=== PATIENT | male | born 1965 | race Caucasian/White ===

== ENCOUNTER → 2020-09-17 14:27 | Outpatient (CLI) | payer BC, SELFPAY ==
--- NOTE | ~2020-09-17 | CT_ITS ---
EXAMINATION: CT abdomen pelvis wo con DATE: 09/17/2020 14:45 INDICATION: Calcium kidney stone TECHNIQUE: Computed tomography (CT) of the abdomen and pelvis was performed without intravenous contr ast. Automated exposure control and iterative reconstruction technique were employed. Exam dose: 107 0.51 mGy-cm total exam DLP. COMPARISON: 11/24/2016 CT abdomen pelvis noncontrast examination FINDINGS: The lung bases are clear of infiltrate or consolidation. Normal heart size. No pericardial or pleural effusion. Diffuse hepatic steatosis. No hepatic space-occupying mass lesion is evident. The gallbladder is pres ent. No gallbladder wall thickening is evident. No pericholecystic fluid or fat stranding. No bile du ct or pancreatic duct dilatation. No pancreatic mass lesion or calcification. Normal splenic size. Approximately 8 cm upper pole exophytic right renal cyst. Several small nonobstructing right renal calculi, the largest approximately 3 mm. There are 2 or 3 pinpoint nonobstructing left renal calculi and one larger lower pole left renal calc ulus measuring up to approximately 7 mm dimension. No ureteral calculus or hydroureteronephrosis is noted on either side. The urinary bladder is unremar kable. There are prostate calcifications. Normal caliber of the abdominal aorta. No intraperitoneal or retroperitoneal or pelvic mass lesion or adenopathy or ascites. Small fat-containing right inguinal hernia. There are numerous diverticula of the sigmoid and descending colon; no CT evidence of diverticulitis. Normal appendix. No bowel obstruction, bowel wall thickening, pneumatosis or intraperitoneal free air . Diffuse idiopathic skeletal hyperostosis of the thoracic spine. Degenerative changes of lumbar spine including degenerative disc disease, most pronounced at L3-4, moderately prominent at L2-3 and L4-5. No suspicious osteolytic or osteoblastic lesions are noted. IMPRESSION: Bilateral nonobstructive nephrolithiasis 8 cm right renal cysts Hepatic steatosis Diverticulosis of the colon; no CT evidence of diverticulitis Reviewed, dictated and finalized at Location A. Reviewed, dictated and finalized at location B. 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
--- NOTE | ~2020-09-17 | XR_ITS ---
EXAMINATION: XR abdomen/kub 1V EXAM DATE: 09/17/2020 14:45 INDICATION: Calcium kidney stone. TECHNIQUE: Frontal projection(s) of the abdomen for interpretation. Correlation was made with CT scan earlier same date. Comparison is made to prior examination from 02/25/2006. FINDINGS: There is expected amount of colonic stool and gas. No small bowel dilation, nonobstructiv e bowel gas pattern. Probable identification of the largest renal stone, located in left inferior ca lyx. Can't confidently identify the smaller stones. There is no organomegaly suspected. The bones are unremarkable. There is no free intraperitoneal air. The lung bases are clear. IMPRESSION: Left nephrolithiasis identified. Reviewed, dictated and finalized at location A. 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
== END ==
PROVIDERS: PCP Internal Medicine; Visit Provider Urology
DX: N20.0 Calculus of kidney (principal); K40.90 Unilateral inguinal hernia, without obstruction or gangrene, not specified as recurrent; M47.816 Spondylosis without myelopathy or radiculopathy, lumbar region; N28.1 Cyst of kidney, acquired; K76.0 Fatty (change of) liver, not elsewhere classified; K57.30 Diverticulosis of large intestine without perforation or abscess without bleeding
CPT/HCPCS: 74018; 74176

== ENCOUNTER 2021-05-15 15:10 | Outpatient (CLI) | payer BC, SELFPAY ==
[2021-05-15 15:45] LABS: CRP 0.9 mg/dL (<1.0)
[2021-05-15 16:26] LABS: Erythrocyte Sedimentation Rate 17 mm/hr (0-20)
[2021-05-23 22:58] LABS: Tissue Transglutaminase IgA Ab <1.0 U/mL (<15.0)
[2021-05-24 19:41] LABS: Tissue Transglutaminase IgG Ab <1.0 U/mL (<15.0)
== END 2021-05-15 15:11 | disposition home or self-care (01) ==
LOC: ANHLAB 15:13
PROVIDERS: PCP Nurse Practitioner Family; Visit Provider Internal Medicine Gastroenterology
DX: R19.5 Other fecal abnormalities (principal)
CPT/HCPCS: 36415; 83516; 85652; 86140

== ENCOUNTER 2023-07-04 12:05 | Emergency (ER) | payer BC, SELFPAY ==
--- NOTE | ~2023-07-04 | XR_ITS ---
EXAMINATION: XR shoulder RT min 2V DATE: 07/04/2023 13:10 INDICATION: Right shoulder pain post fall TECHNIQUE: AP internally and externally rotated, AP oblique externally rotated and transscapular Y vi ews of the right shoulder were obtained. COMPARISON: None FINDINGS: Normal alignment. No fracture.Mild glenohumeral and acromioclavicular osteoarthritis. Visualized por tion of the right lung are clear. Soft tissues are unremarkable. 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 No acute osseous abnormality. Reviewed, dictated and finalized at location A. 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
[2023-07-04 12:20] VITALS: BP 147/81; PULSE 75; RESP 16; TEMP 36.4; O2SAT 100
--- NOTE | 2023-07-04 14:33 | ED.UPPEXIN ---
HPI - Extremity Injury (Upper) General Chief Complaint: Extremity Injury, Upper Stated Complaint: R shoulder injury Time Seen by Provider: 07/04/23 14:16 Source: patient, RN notes reviewed and old records reviewed Mode of arrival: ambulatory Limitations: no limitations History of Present Illness HPI narrative: This is a 58 year old male right hand dominant who presents for evaluation of right shoulder pain. PAtient states yesterday his left leg pants was caught on tram and it caused him to fall onto his right side. He states he fell onto his right shoulder and scrapped up his right knee and right hip. He denies hitting his head or LOC . He has been able to ambulate without difficulty. He reports pain was worse when he woke up this morning. He reports difficulty lifting his right arm. He has not taken any medication or used any treatment. he denies blood thinners. HE denies numbness or tingling. Related Data Home Medications Medication Instructions Recorded Confirmed coenzyme [id number] E 100 mg-100 1 cap PO DAILY 03/25/21 06/03/23 unit capsule Allergies Allergy/AdvReac Type Severity Reaction Status Date / Time No Known Allergies Allergy Verified 07/04/23 12:06 Review of Systems Review of Systems: All systems reviewed & are unremarkable except as noted in HPI and below PMFSH Past Medical History Medical History (Updated 07/04/23 @ 14:38 by Rizwana Polanco MD) Abdominal cramping Anxiety Bloating BMI 38.0-38.9,adult BMI 39.0-39.9,adult BMI 40.0-44.9, adult Colon cancer screening Diabetes mellitus Elevated liver enzymes Encounter to establish care Fatigue Fatty liver CT 06/2018 - fatty liver with mild enlargement; DARREL, copper, ceruloplasmin negative Gout History of kidney stones HTN (hypertension) Hyperlipemia Kidney stones Loose stools Lumbago Nocturia RONDA on CPAP Rash and nonspecific skin eruption Right shoulder pain Screening for diabetes mellitus Skin tag Tinea cruris Surgical History Surgical History Hx of colonoscopy 2013 - internal hemorrhoids and diverticulosis Hx of elbow surgery Hx of lithotripsy Family History Family History Father Family history of malignant neoplasm Mother Family history of malignant neoplasm of breast in first degree relative Hypertension Other Family history of pancreatic cancer Social History Social History Smoking status: Never smoker Second hand tobacco smoke exposure: Yes Alcohol intake: current Drinks per week: 14 Alcohol use details: wine/beer - 2 drinks a day Substance use: never Substance use type: does not use Lack of Transportation: No Lack of Food: Never True Current Housing: I Have Housing Concerned About Future Housing: No Difficulty Paying Gas/Electric Bills: No Difficulty Paying for Meds: No Currently Unemployed: No Education: Associate Degree Difficulty w/ Childcare or Family Care: No Living arrangements: with family Spiritual care concerns: No Exam Const: General: no acute distress and alert Nutritional Appearance: well nourished Orientation/consciousness: patient oriented x3 HENMT: Head: normal to inspection Ears: external ears normal Face/Nose/Sinus: Normal external nose present Face and sinus: normal facial exam and sinuses nontender Eyes: EOM: EOMs intact bilaterally Chest: Chest palpation & inspection: normal inspection of the chest Resp: Effort & Inspection: normal respiratory effort Auscultation: clear to auscultation bilaterally Cardio: Rate: regular rate Rhythm: regular rhythm Heart sounds: no murmurs Skin: Other: abrasion to right anterior knee Neuro: General: patient oriented x3, moves all extremities and CN's II-XI intact bilaterally Extrem: General: normal to inspection Psych: Ment
== END 2023-07-04 14:57 | disposition home or self-care (01) ==
LOC: ANHED 14:47
PROVIDERS: Emergency Provider General Practice; PCP Nurse Practitioner Family
DX: S40.011A Contusion of right shoulder, initial encounter (principal); E11.9 Type 2 diabetes mellitus without complications; I10 Essential (primary) hypertension; M10.9 Gout, unspecified; G47.33 Obstructive sleep apnea (adult) (pediatric); Z87.442 Personal history of urinary calculi; Z79.85 Long-term (current) use of injectable non-insulin antidiabetic drugs; Z79.84 Long term (current) use of oral hypoglycemic drugs; W18.39XA Other fall on same level, initial encounter
CPT/HCPCS: 73030; 99283

== ENCOUNTER → 2023-09-09 13:28 | Outpatient (CLI) | payer BC, SELFPAY ==
--- NOTE | ~2023-09-09 | MR_ITS ---
EXAMINATION: MR shoulder RT wo con DATE: 09/09/2023 13:57 INDICATION: Right shoulder pain TECHNIQUE: Magnetic resonance imaging (MRI) of the right shoulder was performed without intravenous c ontrast. Sequences included axial PD-weighted FS FSE, coronal oblique PD-weighted FS FSE, coronal obl ique T2-weighted FS FSE, sagittal PD-weighted FS FSE, and sagittal T1-weighted SE. COMPARISON: None. FINDINGS: Coracoacromial arch: The acromion undersurface is curved in morphology (type II). The coracoacromial ligament is normal. M ild acromioclavicular osteoarthritis. Rotator cuff: Moderate supraspinatus and mild infraspinatus tendinopathy. There is a small, near full-thickness art icular sided tear at the superior facet footplate of the anterior supraspinatus tendon. The tear exte nds 5 mm AP and 9 mm medial collateral and involves the majority of the thickness of the tendon. Ther e appears to be a very thin intact bursal surface to the tendon although could not exclude a nonvisua lized full-thickness perforation. The teres minor tendon is normal. Mild subscapularis tendinopathy w ithout tear.. Normal rotator cuff muscle bulk and signal. Biceps tendon, glenoid labrum and glenohumeral cartilage: Long head of the biceps tendon is normal. Glenoid labrum is normal. Glenohumeral cartilage is normal. Fluid: Physiologic amount of fluid in the glenohumeral joint and biceps tendon sheath. No loose osteochondr al bodies. Small amount of fluid and mild synovitis in the subacromial/subdeltoid bursa consistent wi th mild bursitis. There is also a small amount of fluid within a thin ganglion cyst extending along t he deep and cephalad margins of the infraspinatus muscle and tendon at the level of the more cephalad acromioclavicular joint. Bones: Normal marrow signal with no edema, fracture or abnormal marrow replacing process. IMPRESSION: 1. Moderate supraspinatus tendinopathy with small near full-thickness articular sided tear at the dis gely insertion of the tendon. 2. Mild subacromial/subdeltoid bursitis. 3. Mild acromion clavicular osteoarthritis. Reviewed, dictated and finalized at location A. 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 Moderate supraspinatus tendinopathy with small near full-thickness articular sided tear at the distal insertion of the tendon. 2. Mild subacromial/subdeltoid bursitis. 3. Mild acromion clavicular osteoarthritis.
== END ==
PROVIDERS: PCP Orthopaedic Surgery; Visit Provider Orthopaedic Surgery
DX: M25.511 Pain in right shoulder (principal); M77.8 Other enthesopathies, not elsewhere classified; M75.51 Bursitis of right shoulder; M19.011 Primary osteoarthritis, right shoulder
CPT/HCPCS: 73221

== ENCOUNTER 2023-09-30 13:59 | Outpatient (CLI) | payer BC, SELFPAY ==
--- NOTE | 2023-09-30 14:14 | ECG_ITS ---
Measurements Intervals [place] Rate: 59 P: 15 W[place]: 163 QRS: 38 QRSD: 113 T: 70 QT: 419 QTc: 416 Interpretive Statements SINUS BRADYCARDIA INFERIOR MYOCARDIAL INFARCTION , OF INDETERMINATE AGE [40+ ms Q WAVE AND/OR ST/T ABNORMALITY IN II/aVF] NO PREVIOUS ECG AVAILABLE FOR COMPARISON Electronically Signed On 09-30-2023 15:51:59 CASINO CHANGE ATTENDANT by Kylah Mirza M.D.
== END 2023-09-30 14:00 | disposition home or self-care (01) ==
LOC: ANHCARD 14:02
PROVIDERS: PCP Family Medicine; Visit Provider Nurse Practitioner Family
DX: Z01.818 Encounter for other preprocedural examination (principal); I21.9 Acute myocardial infarction, unspecified
CPT/HCPCS: 93005

== ENCOUNTER 2023-10-18 08:29 | Outpatient (CLI) | payer BC, SELFPAY ==
--- NOTE | 2023-10-18 08:47 | EST_ITS ---
Patient Info Name: Roman Franco Age: 58 years : 1965 Gender: Male Ht: 69 in Wt: 230 lbs BSA: 2.29 m2 HR: 67 bpm BP: 124 / 77 mmHg Heart Rhythm: Sinus Rhythm Exam Date: 10/18/2023 9:19 AM Exam Location: Echo Lab Patient Status: Outpatient Admit Date: 10/18/2023 Staff Ordering Physician: Charis Simmons NP Attending Provider: Charis Simmons NP Exercise Technologist: Eusebia Mas CT Exercise Physician: Sumit Marcos DO Exam Type: CA stress test treadmill Study Info Indications R94.31 - Abnormal electrocardiogram ECG EKG A treadmill exercise stress test was performed. Summary 1. 1. Negative Jose exercise stress test for ischemic ST changes by ECG criteria. 2. 2. Reduced functional capacity, achieving 7 METs of workload. 3. 3. Appropriate HR response to exercise. 4. 4. Appropriate HR recovery at 1 minute post exercise. 5. 5. No imaging with stress testing. 6. 6. Patient informed of the above results. Protocol: Jose Stress ECG Details Stage: REST Duration (min): 0 min : 58 sec Speed (mph): 0.0 Grade (%): 0 HR (bpm): 66 SBP (mmHg): 124 DBP (mmHg): 77 METS: --- Stage: REST Duration (min): 8 min : 39 sec Speed (mph): 0.0 Grade (%): 0 HR (bpm): 72 SBP (mmHg): 124 DBP (mmHg): 77 METS: --- Stage: STAGE 1 Duration (min): 1 min : 0 sec Speed (mph): 1.7 Grade (%): 10 HR (bpm): 102 SBP (mmHg): 124 DBP (mmHg): 77 METS: --- Stage: STAGE 1 Duration (min): 2 min : 0 sec Speed (mph): 1.7 Grade (%): 10 HR (bpm): 112 SBP (mmHg): 124 DBP (mmHg): 77 METS: --- Stage: STAGE 1 Duration (min): 3 min : 0 sec Speed (mph): 1.7 Grade (%): 10 HR (bpm): 113 SBP (mmHg): 173 DBP (mmHg): 77 METS: --- Stage: STAGE 2 Duration (min): 1 min : 0 sec Speed (mph): 2.5 Grade (%): 12 HR (bpm): 124 SBP (mmHg): 173 DBP (mmHg): 77 METS: --- Stage: STAGE 2 Duration (min): 2 min : 0 sec Speed (mph): 2.5 Grade (%): 12 HR (bpm): 137 SBP (mmHg): 180 DBP (mmHg): 79 METS: --- Stage: STAGE 2 Duration (min): 3 min : 0 sec Speed (mph): 2.5 Grade (%): 12 HR (bpm): 146 SBP (mmHg): 180 DBP (mmHg): 79 METS: --- Stage: RECOVERY Duration (min): 0 min : 59 sec Speed (mph): 0.0 Grade (%): 0 HR (bpm): 120 SBP (mmHg): 175 DBP (mmHg): 81 METS: --- Stage: RECOVERY Duration (min): 1 min : 59 sec Speed (mph): 0.0 Grade (%): 0 HR (bpm): 99 SBP (mmHg): 175 DBP (mmHg): 81 METS: --- Stage: RECOVERY Duration (min): 2 min : 59 sec Speed (mph): 0.0 Grade (%): 0 HR (bpm): 94 SBP (mmHg): 152 DBP (mmHg): 80 METS: --- Stage: RECOVERY Duration (min): 3 min : 8 sec Speed (mph): 0.0 Grade (%): 0 HR (bpm): 90 SBP (mmHg): 152 DBP (mmHg): 80 METS: --- Rest HR: 72 bpm Peak HR: 148 bpm Rest Sys BP: 124 mmHg Peak Sys BP: 180 mmHg Max Pred HR: 161 bpm % Max Pred HR: 92 % Target HR: 137 bpm Max RPP:
--- NOTE | 2023-10-18 08:47 | ECHO_ITS ---
Patient Info Name: Roman Franco Age: 58 years : 1965 Gender: Male Ht: 69 in Wt: 230 lbs BSA: 2.29 m2 HR: 68 bpm BP: 136 / 91 mmHg Technical Quality: Good Exam Date: 10/18/2023 8:49 AM Exam Location: Echo Lab Patient Status: Outpatient Admit Date: 10/18/2023 Staff Ordering Physician: Charis Simmons NP Air Route Traffic Controller: Nan Carrasco RDCS Attending Provider: Charis Simmons NP Exam Type: CA echo doppler color flow Study Info Indications R94.31 - Abnormal electrocardiogram ECG EKG Complete two-dimensional, color flow and Doppler transthoracic echocardiogram is performed. Summary 1. Complete two-dimensional, color flow and Doppler transthoracic echocardiogram is performed. 2. Left ventricular chamber dimension is normal. 3. Ventricular septum is sigmoid shaped measuring 1.7 cm which could suggests hypertrophic cardiomyopathy. No resting LVOT obstruction. 4. Left ventricular systolic function is normal, estimated at 60-65%. 5. The left ventricular diastolic function is normal. 6. E/e' 9 is minimally elevated. 7. Global longitudinal strain is mildly abnormal at -16.0%. 8. Left atrial chamber dimension is mildly enlarged. 9. The mitral valve has moderately calcified annulus. 10. There is trace mitral valve regurgitation. 11. No pulmonary hypertension, estimated pulmonary arterial systolic pressure is 31 mmHg. Left Ventricle E/e' 9 is minimally elevated. Global longitudinal strain is mildly abnormal at -16.0%. Ventricular septum is sigmoid shaped measuring 1.7 cm which could suggests hypertrophic cardiomyopathy. No resting LVOT obstruction. Left ventricular chamber dimension is normal. Left ventricular systolic function is normal, estimated at 60-65%. The left ventricular diastolic function is normal. Right Ventricle Right ventricular systolic function is normal and with normal TAPSE 2.1 cm. Right ventricular chamber dimension is normal. Left Atria Left atrial chamber dimension is mildly enlarged. Right Atria Right atrial chamber dimension is normal. Aortic Valve The aortic valve is trileaflet. There is no aortic valve stenosis. There is no aortic valve regurgitation. Pulmonic Valve There is no pulmonic regurgitation. Mitral Valve The mitral valve has moderately calcified annulus. There is no mitral valve stenosis. There is trace mitral valve regurgitation. Tricuspid Valve There is no tricuspid valve regurgitation. No pulmonary hypertension, estimated pulmonary arterial systolic pressure is 31 mmHg. Pericardium/Pleural There is no pericardial effusion. Inferior Vena Cava Normal inferior vena cava with >50% collapse upon inspiration consistent with normal right atrial pressure, 5 mmHg. Aorta The aortic root size at the sinus of Valsalva is normal. Left Ventricular Outflow Tract Name Value Normal LVOT 2D LVOT Diameter 2.1 cm LVOT Doppler LVOT Peak Gradient 5 mmHg LVOT Mean Gradient 3 mmHg LVOT VTI 22 cm LVOT VTI/AV VTI Ratio 0.9 LVOT Stroke Volume 77 ml LVOT CO 5.0 l/min LVOT CI
== END 2023-10-18 08:30 | disposition home or self-care (01) ==
PROVIDERS: PCP Family Medicine; Visit Provider Nurse Practitioner Family
DX: R94.31 Abnormal electrocardiogram [ECG] [EKG] (principal)
CPT/HCPCS: 93017; 93306

== ENCOUNTER 2023-11-29 13:34 | Outpatient (CLI) | payer BC, SELFPAY ==
[2023-11-29 14:12] LABS: Anion Gap 5 mmol/L (4-12); Blood Urea Nitrogen 14 mg/dL (9-20); Calcium 10.2 mg/dL (8.4-10.2); Carbon Dioxide 28 mmol/L (22-30); Chloride 105 mmol/L (98-107); Estimated Glomerular Filt Rate > 60; Glucose 105 mg/dL (65-110); Potassium 4.3 mmol/L (3.4-5.0); Sodium 138 mmol/L (137-145)
== END 2023-11-29 13:35 | disposition home or self-care (01) ==
LOC: ANHLAB 13:35
PROVIDERS: PCP Family Medicine; Visit Provider Anesthesiology
DX: E11.9 Type 2 diabetes mellitus without complications (principal); Z01.818 Encounter for other preprocedural examination
CPT/HCPCS: 36415; 80048

== ENCOUNTER 2023-12-01 00:58 | Day surgery (SDC) | payer BC, SELFPAY ==
[2023-11-23 14:53] VITALS: BMI 34.0
--- NOTE | 2023-11-23 15:08 | PC.NURSE ---
Report to the Outpatient Waiting Room, entrance under the green pavilion located off [facility], at time _0830 AM on date _12/01/23 . Planned Procedure Time: __1030AM . Time changes happen often and if your time is changed the preop area will call you the afternoon before. - You and your visitor will be asked to self-screen and do not enter if you have any COVID symptoms. - A mask is optional within the hospital at this time. Patients may have clear liquids (water, carbonated beverages, clear teas, apple juice) until 3 hours prior to surgery with a maximum of 20 ounces. - No food from midnight until time of surgery Take the following medications with a SIP of water the morning of surgery: ____AMLODIPINE DO NOT STOP ANY OF YOUR OTHER PRESCRIPTION MEDICATIONS PRIOR TO SURGERY ?EXCEPT THE FOLLOWING Medications to discontinue per physician NONE Date to take last dose___NONE Please no make-up, nail maori, hairspray, perfume, deodorant, or body powder the day of surgery. No jewelry (including any body piercings) or valuables the day of surgery, leave them at home. Please take a shower or bath the night before, or the morning of, surgery with an antibacterial soap. Wear comfortable, loose fitting clothing. - Jewelry must be removed prior to entering the operating room. Rings and piercings that are not removed may be cut off. - The hospital will not accept responsibility for valuables. - Please leave all valuables, including medications, at home the day of surgery. If you are going home after surgery, a licensed electric train driver must drive you home. - NO public transportation without another adult if you receive anesthesia. - We recommend that an adult stay with you for 24 hours following discharge. - We also recommend that you do not drive, make important decision, drink alcoholic beverages, or take any drugs that were not prescribed by your health care provider for at least 24 hours after your discharge time. Follow any additional instructions given to you from your surgeon. If you or anyone in your household have experienced Covid symptoms in the past week, please notify your surgeon or the nurse liaison at the phone number below for possible testing. Telephone instructions given to __JARETT and asked if any additional questions and then verbalized understanding. Patient advised to call surgeon office or pre surgery nurse liaison [phone] if any additional questions.
[2023-12-01] VITALS (7 sets, daily range): BP systolic 103–152; BP diastolic 56–86; PULSE 60–73; RESP 12–20; TEMP 35.9–36.4; O2SAT 96–100
--- NOTE | 2023-12-01 07:22 | WPDHPUPDATE1 ---
History and Physical Update Update Date/Time: 12/01/23 07:22 History and Physical has been reviewed, including an updated exam of the patient. There are NO changes in the patient's condition. Risks, benefits, and alternatives have been discussed and questions answered. Patient agrees to proceed with procedure.
[2023-12-01] MEDS: ACETAMINOPHEN 500 MG TABLET 1000 MG PO (09:14)
[2023-12-01] MEDS: CELECOXIB 200 MG CAPSULE PO (09:14)
[2023-12-01] MEDS: LACTATED RINGERS 1,000 ML 30 ML IV CONT ×2 (09:15→12:16)
[2023-12-01 09:19] LABS: Glucose Point of Care 102 mg/dl (65-105)
--- NOTE | 2023-12-01 09:55 | WPDHPUPDATE1 ---
History and Physical Update Update Date/Time: 12/01/23 09:55 History and Physical has been reviewed, including an updated exam of the patient. There are NO changes in the patient's condition. Risks, benefits, and alternatives have been discussed and questions answered. Patient agrees to proceed with procedure. PLAN IS FOR RIGHT ROTATOR CUFF REPAIR
--- NOTE | 2023-12-01 10:07 | WPDANESEPPF ---
Anes - Initial Pre Proc Eval Procedure: Operation Date: 12/01/23 10:30 Proposed Procedures p Right Rotator Cuff Repair - Ruy Castro MD Date/Time: 12/01/23 10:07 Surgeon: Ruy Castro MD Pre Op Diagnosis: Rt Shoulder Rot Cuff Tear Patient Data Age: 58 Gender: M Height: 1.75 m Weight: 108.2 kg Last Vital Signs Temp 36.4 C 12/01/23 08:33 Pulse 72 12/01/23 08:33 Resp 18 12/01/23 08:33 BP 128/86 12/01/23 08:33 Pulse Ox 100 12/01/23 08:33 O2 Del Method Room Air 12/01/23 08:33 Allergies Allergy/AdvReac Type Severity Reaction Status Date / Time No Known Allergies Allergy Verified 11/23/23 15:02 Home Medications Medication Instructions Recorded Confirmed Type potassium citrate 15 mEq (1,620 15 meq PO TIDWMEAL #270 tabs 08/31/22 11/23/23 Rx mg) tablet,extended release olmesartan 40 mg tablet 40 mg PO DAILY #90 tabs 02/15/23 11/23/23 Rx cyclobenzaprine 10 mg tablet 5 - 10 mg PO QHS PRN muscle spasm 08/03/23 11/23/23 Rx #30 tabs atorvastatin 10 mg tablet 10 mg PO DAILY #90 tabs 09/08/23 11/23/23 Rx semaglutide 0.25 mg or 0.5 mg (2 0.25 mg (0.368 mL) subcut WEEKLY 10/04/23 11/23/23 Rx mg/3 mL) subcutaneous pen injector #3 mL (Ozempic) amlodipine 5 mg tablet 5 mg PO DAILY 10/19/23 11/23/23 History benzoyl peroxide 5 % topical gel 1 applic topical DAILY #42.5 grams 11/18/23 11/23/23 Rx clindamycin phosphate 1 % topical 1 applic topical DAILY #30 grams 11/18/23 11/23/23 Rx gel chlorhexidine gluconate 4 % 1 applic topical ONCE #237 mL 11/24/23 Rx topical liquid (Hibiclens) Laboratory Tests 12/01/23 09:15 POC Capillary Glucose 102 mg/dl (65-105) Patient hx anesthesia problems: none Family hx anesthesia problems: none Results Review: All pre-operative results and documents have been reviewed as part of the pre-operative evaluation. COUNTS INCLUDE 234 BEDS AT THE [facility] Past Medical History Medical History Abdominal cramping Abnormal echocardiogram Abnormal EKG Anxiety Bloating BMI 34.0-34.9,adult BMI 38.0-38.9,adult BMI 39.0-39.9,adult BMI 40.0-44.9, adult Colon cancer screening Diabetes mellitus Elevated liver enzymes Encounter to establish care Fatigue Fatty liver CT 06/2018 - fatty liver with mild enlargement; DARREL, copper, ceruloplasmin negative Gout History of kidney stones HTN (hypertension) Hyperlipemia Kidney stones Loose stools Lumbago Nocturia RONDA on CPAP Rash and nonspecific skin eruption Right shoulder pain Rotator cuff tear Screening for diabetes mellitus Skin tag Tinea cruris Surgical History Surgical History Hx of colonoscopy 2013 - internal hemorrhoids and diverticulosis Hx of elbow surgery Hx of lithotripsy Family History Family History Father Family history of malignant neoplasm Mother Family history of malignant neoplasm of breast in first degree relative Hypertension Other Family history of pancreatic cancer Social History Social History Smoking status: Never smoker Second hand tobacco smoke exposure: Yes Alcohol intake: current Drinks per week: 4 Alcohol use details: wine/beer Substance use: never Substance use type: does not use Lack of Transportation: No Lack of Food: Never True Current Housing: I Have Housing Concerned About Future Housing: No Difficulty Paying Gas/Electric Bills: No Difficulty Paying for Meds: No Currently Unemployed: No Education: Associate Degree Difficulty w/ Childcare or Family Care: No Living arrangements: with family Occupation/Education: occupation Additional occupation/education comments: [employer] Spiritual care concerns: No Anes - Eval Final PreProcedure Day of Procedure 12/01/23 10:07 Patient weight: obese Heart: re
--- NOTE | 2023-12-01 10:16 | WPDANESPNB ---
Anes - Peripheral Nerve Block Date/Time: 12/01/23 10:16 I have discussed with the patient/family/POA the placement of a peripheral nerve block for post-operative pain management, including associated risks, benefits, complications, and side effects. Alternative methods of post-operative analgesia were detailed. Questions were solicited and answers provided to the satisfaction of the patient/family/POA. Time-Out: A pre-procedural Time-Out was completed immediately before starting the procedure and confirmed: Patient Identification, Site, Procedure, Patient Position and the Availability of Requisite Equipment. Clinical Indications: Acute post-operative pain management requested by the operative surgeon. Nerve Block Insertion Note Anes-nerve block: interscalene right Patient position: supine Skin prep: chlorhexidine Needle: 22 gauge, stimulating, insulated echogenic needle. Needle length: 50 mm Technique: ultrasound Injectate: bupivacaine 0.5% with epi 5 mcg/ml (30c noepi) and dexamethasone (mg) (8) Observations: tolerated well Complications: none Procedure start time:: 1012 Procedure end time:: 1016
[2023-12-01] MEDS: ceFAZolin 2 GM/D5W 50 ML 2 GM/50 ML BAG IVPB (10:26)
--- NOTE | 2023-12-01 12:17 | W.PM.PROC2 ---
Procedure Note - Detailed Date of Procedure 12/01/23 Pre-op Diagnosis Rt Shoulder Rot Cuff Tear Post-op Diagnosis Same Procedure Performed REPAIR RIGHT ROTATOR CUFF Surgeon Ruy Castro MD Anesthesia General Description of Procedure THE PATIENT WAS TAKEN TO THE OPERATING ROOM AND THEN INTUBATED AND PLACED IN THE BEACH CHAIR POSITION. THE RIGHT UPPER EXTREMITY WAS PREPPED AND DRAPED IN THE NORMAL STERILE FASHION. AN INCISION WAS MADE IN BETWEEN THE NAMAN-LATERAL ACROMION AND THE AC JOINT. THE FASCIA WAS IDENTIFIED. NEXT A MINI OPEN INCISION WAS MADE THROUGH THE DELTOID MUSCLE EXPOSING THE SUBACROMIAL SPACE. A LIMITED ACROMIOPLASTY WAS PREFORMED. THE ROTATOR CUFF WAS IDENTIFIED. THERE WAS A FULL THICKNESS TEAR. IT MEASURED APPROXIMATELY 1 CM X 1 CM. THE GREATER TUBEROSITY WAS DEBRIDED TO BLEEDING BONE. 1 ARTHREX 4.5 SUTURE ANCHOR WAS PLACED IN TO GOOD BONE AND HAD A VERY GOOD BITE. DONELL-JOEY TYPE REPAIRS WERE DONE TO THE ROTATOR CUFF AND THERE WAS GOOD APPROXIMATION TO THE GREATER TUBEROSITY. THE REPAIR WAS EXCELLENT. THERE WAS NO IMPINGEMENT ON THE REPAIR FROM THE ACROMION WITH RANGE OF MOTION. THE WOUND WAS IRRIGATED WITH COPIOUS AMOUNTS OF ANTIBIOTIC SOLUTION. THE DELTOID MUSCLE WAS REPAIRED WITH #2 FIBER WIRE AND 0 VICRYL SUTURE. THE SUBCUTANEOUS LAYER WAS APPROXIMATED WITH 2-0 VICRYL. THE SKIN WAS APPROXIMATED WITH 3-0 QUIL AND DERMABOND. STERILE DRESSING WAS APPLIED. PATIENT WAS EXTUBATED. Estimated Blood Loss 20 Complications No immediate complications Condition Stable Disposition PACU
[2023-12-01 12:26] LABS: Glucose Point of Care 106 mg/dl (65-105)
[2023-12-01] MEDS: oxyCODONE HCL (*CRX) 5 MG TAB IR PO (13:02)
== END 2023-12-01 13:45 | disposition home or self-care (01) ==
PROVIDERS: PCP Family Medicine; Visit Provider Orthopaedic Surgery
PROC: (CPT 23420; principal; 2023-12-01 10:30)
DX: S46.011A Strain of muscle(s) and tendon(s) of the rotator cuff of right shoulder, initial encounter (principal); G89.18 Other acute postprocedural pain; W19.XXXA Unspecified fall, initial encounter; E11.9 Type 2 diabetes mellitus without complications; I10 Essential (primary) hypertension; E78.5 Hyperlipidemia, unspecified; G47.33 Obstructive sleep apnea (adult) (pediatric); E66.9 Obesity, unspecified; Z68.35 Body mass index [BMI] 35.0-35.9, adult; Z79.85 Long-term (current) use of injectable non-insulin antidiabetic drugs
CPT/HCPCS: 23410; 64415; 82948; A9270; C1713; J0330; J0690; J1100; J1170; J2250; J2405; J2704; J3010; J7120

== ENCOUNTER 2024-01-17 14:53 | Outpatient (NON) | payer BC, SELFPAY | END 2024-01-17 14:54 | disposition home or self-care (01) | PROVIDERS: PCP Family Medicine; Visit Provider Orthopaedic Surgery | DX: T81.31XA Disruption of external operation (surgical) wound, not elsewhere classified, initial encounter (principal); Y83.8 Other surgical procedures as the cause of abnormal reaction of the patient, or of later complication, without mention of misadventure at the time of the procedure | CPT/HCPCS: 87070; 87075; 87205 ==

== ENCOUNTER 2024-01-20 06:47 | Emergency (ER) | payer BC, SELFPAY ==
--- NOTE | ~2024-01-20 | CT_ITS ---
EXAMINATION: CT abdomen pelvis wo con DATE: 01/20/2024 07:44 INDICATION: Left inguinal pain. Left thigh pain. Kidney stones. TECHNIQUE: Computed tomography (CT) of the abdomen and pelvis was performed without intravenous contr ast. Automated exposure control and iterative reconstruction technique were employed. The dose-length product was 609.90 mGy-cm. COMPARISON: CT abdomen and pelvis 09/17/2020 FINDINGS: The visualized portions of the lung bases demonstrate mild atelectasis. There are a few sca ttered nodules in the lungs measuring up to 4 mm without change, consistent with granulomatous diseas e. No pleural effusion. The heart size is normal. No pericardial effusion. There is diffuse hepatic s teatosis. The gallbladder, spleen, pancreas, and adrenal glands are normal. There is a 8.5 cm cyst in right kidney. There is a 2.3 cm cyst in right kidney. There are 4 stones in right kidney measuring u p to 7 mm. There are approximately 4 stones in left kidney measuring up to 6 mm. There is a right ing uinal hernia containing fat. There is diverticulosis of the colon without evidence of diverticulitis. There are no dilated loops of bowel. The appendix is normal. There are no pathologically enlarged ly mph nodes. There is no free intraperitoneal fluid. There is mild thoracic spondylosis and moderate charlie mbar spondylosis. There is mild chronic anterior wedging of multiple thoracic vertebral bodies. There is a benign bone island in spinous process of L2. There is a benign bone island in left ilium. There is mild osteoarthritis of the hips. IMPRESSION: 1. Bilateral nonobstructing kidney stones. 2. Right inguinal hernia containing fat. Reviewed, dictated and finalized at location A.
[2024-01-20 06:52] VITALS: BP 154/89; PULSE 80; RESP 15; TEMP 37; O2SAT 99
--- NOTE | 2024-01-20 07:00 | ED.MALEGU ---
HPI - Male Genitourinary General Chief complaint: Urogenital-Male Stated complaint: flank pain Time Seen by Provider: 01/20/24 06:58 Source: patient Mode of arrival: ambulatory Limitations: no limitations History of Present Illness HPI Narrative: 59-year-old male with history of recurrent/multiple kidney stones presents with concern for the same. He notes that he passes kidney stones frequently ranging in size up to and including a size of a tic tach. Notably, he states the past 1 on Wednesday the size of a BB pellet while at a concert. Well as this concert he also feels like he might does strained or pulled a muscle in his left groin is he is having some pain there. This morning he developed some left flank pain and had some dark hematuria. Hematuria is improving and he now notes that it is pink-tinged on subsequent voids. He has also had nausea and then had multiple episodes of vomiting which prompted him to come to the emergency department. He has not yet taking anything for pain. Denies any fevers. His urologist is Dr. Hathaway. he has undergone 2 lithotripsy procedures and 1 retrieval procedure previously but denies any prior infected stones or need for hospitalization due to his stones. He rates his pain as 4/10 in severity. Related Data Home Medications Medication Instructions Recorded Confirmed amlodipine 5 mg tablet 5 mg PO DAILY 10/19/23 01/17/24 Allergies Allergy/AdvReac Type Severity Reaction Status Date / Time No Known Allergies Allergy Verified 01/17/24 13:41 [facility] Past Medical History Medical History Abdominal cramping Abnormal echocardiogram Abnormal EKG Anxiety Bloating BMI 34.0-34.9,adult BMI 38.0-38.9,adult BMI 39.0-39.9,adult BMI 40.0-44.9, adult Colon cancer screening Diabetes mellitus Elevated liver enzymes Encounter to establish care Fatigue Fatty liver CT 06/2018 - fatty liver with mild enlargement; DARREL, copper, ceruloplasmin negative Gout History of kidney stones HTN (hypertension) Hyperlipemia Kidney stones Loose stools Lumbago Nocturia RONDA on CPAP Rash and nonspecific skin eruption Right shoulder pain Rotator cuff tear Screening for diabetes mellitus Skin tag Tinea cruris Surgical History Surgical History Hx of colonoscopy 2014 - internal hemorrhoids and diverticulosis Hx of elbow surgery Hx of lithotripsy Family History Family History Father Family history of malignant neoplasm Mother Family history of malignant neoplasm of breast in first degree relative Hypertension Other Family history of pancreatic cancer Social History Social History (Updated 01/20/24 @ 07:18 by Shilpa Loera MD) 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[employer]; 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 Smoking status: Never smoker Second hand tobacco smoke exposure: Yes Alcohol intake: current Drinks per week: 4 Alcohol use details: wine/beer Substance use: never Substance use type: does not use Lack of Transportation: No Lack of Food: Never True Current Housing: I Have Housing Concerned About Future Housing: No Difficulty Paying Gas/Electric Bills: No Difficulty Paying for Meds: No Currently Unemployed: No Education: Associate Degree Difficulty w/ Childcare or Family Care: No Living arrangements: with family Occupation/Education: occupation Additional occupation/education comments: [employer] care concerns: No Exam Narrative: GENERAL: Well-appearing, well-nourished, and in no acute distress. HEAD: Normocephalic, atraumatic. EYES: Non injected, non icteric ENT: Nares clear, no rhinorrhea or epistaxis. NECK: Supple. CHEST: Speaking in full sentences. No respiratory distress. HEART: Regular rate and rhythm. Strong femoral pulse on Left. ABDOMEN: Sof
[2024-01-20] MEDS: MORPHINE SULFATE (*CRX) 4 MG/ML INJ IV PUSH (07:29)
[2024-01-20] MEDS: ONDANSETRON INJ 4 MG/2 ML VIAL IV PUSH (07:29)
[2024-01-20] MEDS: SODIUM CHLORIDE 0.9% IV 1,000 ML 999 ML IV CONT (07:30)
[2024-01-20 07:31] LABS: Basophils Absolute Auto 0.1 K/mm3 (0.0-0.1); Basophils Percent Auto 0.7 % (0.2-1.2); Eosinophils Absolute Auto 0.2 K/mm3 (0-0.3); Eosinophils Percent Auto 2.4 % (0-4.4); Hematocrit 44.9 % (42.0-52.0); Hemoglobin 15.2 g/dL (14.0-18.0); Immature Granulocyte Absolute 0.04 K/mm3 (0.00-0.031); Immature Granulocyte Percent A 0.6 % (0-0.5); Lymphocytes Absolute Auto 1.67 K/mm3 (0.9-3.2); Mean Corpuscular HGB Conc 33.9 g/dl (32-36); Mean Corpuscular Hemoglobin 30.3 pg (26-34); Mean Corpuscular Volume 89.4 fl (80-100); Mean Platelet Volume 11.2 fl (7.4-10.4); Monocytes Absolute Auto 0.9 K/mm3 (0.1-0.6); Monocytes Percent Auto 13.8 % (2.6-8.5); Neutrophils Absolute Auto 3.8 K/mm3 (1.3-6.7); Neutrophils Percent Auto 57.5 % (45.5-73.1); Platelet Count Result 164 k/mm3 (150-375); Red Blood Count 5.02 M/mm3 (4.6-6.20); Red Cell Distribution Width 13.3 % (11.5-14.5); White Blood Count 6.7 K/mm3 (4.5-10.0)
[2024-01-20 07:39] LABS: Appearance Urine Cloudy (Clear); Bacteria Urine None Seen /hpf; Bilirubin Urine Negative (Negative); Blood Urine 3+ (Negative); Color Urine Yellow (Yellow); Glucose Urine UA Negative (Negative); Ketones Urine Negative (Negative); Leukocyte Esterase Ur 1+ LEU/UL (Negative); Nitrate Urine Negative (Negative); Non Pathogenic Casts 0-2; Protein Urine Trace mg/dL (Negative); RBC Urine >100 /hpf (0-2); Specific Grav Ur 1.016 (1.001-1.035); Squamous Epithelial Cell Urine None Seen /hpf (Few)
[2024-01-20 07:42] LABS: Alanine Aminotransferase 49 U/L (6-50); Albumin Level 4.8 g/dL (3.5-5.1); Alkaline Phosphatase 86 U/L (38-126); Anion Gap 9 mmol/L (4-12); Aspartate Amino Transferase 39 U/L (17-59); Bilirubin,Total 0.7 mg/dL (0.2-1.3); Blood Urea Nitrogen 12 mg/dL (9-20); Calcium 9.7 mg/dL (8.4-10.2); Carbon Dioxide 24 mmol/L (22-30); Chloride 107 mmol/L (98-107); Estimated Glomerular Filt Rate > 60; Glucose 94 mg/dL (65-110); Potassium 4.7 mmol/L (3.4-5.0); Sodium 140 mmol/L (137-145)
[2024-01-20 07:51] LABS: Add Urine Microscopic? YES
[2024-01-20] MEDS: KETOROLAC 15 MG/ML VIAL (*BKC) IV PUSH (08:32)
--- NOTE | 2024-01-20 08:37 | PC.NURSE ---
This RN came to bedside to administer ordered medications. When providing patient education with antibiotic, pt stated that he forgot to mention that he is already on an antibiotic for infected surgical site to right shoulder (rotator cuff repair). Reports he picked up Bactrim on Wednesday of this week and has been taking that since. RN informed MD Loera of this prior to administering, and per MD Loera, do not give ceftriaxone and pt does not need to brain picker the prescribed antibiotic. Pt informed of MD Loera's instructions and verbalized understanding.
[2024-01-20 09:30] VITALS: BP 140/89; PULSE 80; RESP 20; O2SAT 98
== END 2024-01-20 09:30 | disposition home or self-care (01) ==
PROVIDERS: Emergency Provider Student in an Organized Health Care Education/Training Program; PCP Family Medicine
DX: N20.0 Calculus of kidney (principal); K40.90 Unilateral inguinal hernia, without obstruction or gangrene, not specified as recurrent; R31.9 Hematuria, unspecified; I10 Essential (primary) hypertension; E11.9 Type 2 diabetes mellitus without complications; G47.33 Obstructive sleep apnea (adult) (pediatric); M10.9 Gout, unspecified; Z87.442 Personal history of urinary calculi; Z79.85 Long-term (current) use of injectable non-insulin antidiabetic drugs; Z79.899 Other long term (current) drug therapy
CPT/HCPCS: 36415; 74176; 80053; 81001; 85025; 87086; 96361; 96374; 96375; 99284; J1885; J2270; J2405; J7030

== ENCOUNTER 2024-02-22 13:30 | Outpatient (RCR) | payer BC, SELFPAY ==
--- NOTE | 2023-12-15 14:58 | OPREHPOC ---
Outpatient Therapy Plan of Care This is a Multidisciplinary Plan of Care that may contain components documented by all disciplines (PT, OT, and ST.) PT Problem 1 PT Problem #1 Knowledge Deficit PT Goal 1 Goal [place] with HEP Target Visit 4 PT Problem 2 PT Problem #2 Impaired Range of Motion PT Goal 1 Goal Patient will achieve 170 degrees passive R shoulder flexion Target Visit 8 PT Goal 2 Goal Patient will achieve 80 degrees R shoulder external rotation for improved self care Target Visit 8 PT Problem 3 PT Problem #3 Impaired Strength PT Goal 1 Goal Patient will demonstrate gross R shoulder strength of 4+/5 PT Goal 2 Goal Patient will demonstrate 8# lift overhead x 10 when protocol allows for functional object manipulation return Target Visit 8
--- NOTE | 2023-12-15 14:59 | PTOPEVAL1 ---
Assessment and note entered by [facility], PT Evaluation Information Assessment Status Evaluation Diagnosis Right rotator cuff repair Onset 12/01/23 Subjective Information Reports that he had history of injury to shoulder which caused initial injury from a fall. Surgical repair in November. Reports that pain is minimal at this time, but he is having difficulty lifting his arm to the side. Denies difficulty sleeping and has been able to return to sleeping in the bed with no problem. Patient is R handed. Reported Pain Level Pain Score 3: Self Report Assessment PT Clinical Summary Patient presents with signs and symptoms consistent with post operative rotator cuff repair . Patient overall is showing excellent early measures and will be able to be gently progressed to full shoulder mobility over course of the next couple weeks until transition is made to active motion and isometrics. Plan of Care Interventions Electrical Stimulation,Manual Therapy,Neuro Re- education,Therapeutic Activities,Therapeutic Exercise PT Services Indicated Yes Treatment Frequency and 1-2x/week for 8 visits Duration These treatments will address the objective and functional deficits as defined above. The patient will be advanced safely and appropriately in order for the patient to progress towards his/her prior level of function. Additional exercises will be introduced and as well as a comprehensive home exercise program upon discharge, if needed, ?to ensure carryover of functional gains achieved in the clinic. This treatment plan has been reviewed and agreement upon by the patient.
--- NOTE | 2024-01-21 14:42 | OPREHPOC ---
Outpatient Therapy Plan of Care This is a Multidisciplinary Plan of Care that may contain components documented by all disciplines (PT, OT, and ST.) PT Problem 1 PT Problem #1 Knowledge Deficit PT Goal 1 Goal [place] with HEP Target Visit 4 Progress Met PT Problem 2 PT Problem #2 Impaired Range of Motion PT Goal 1 Goal Patient will achieve 170 degrees passive R shoulder flexion Target Visit 8 Progress Met PT Goal 2 Goal Patient will achieve 80 degrees R shoulder external rotation for improved self care Target Visit 8 Progress Met PT Problem 3 PT Problem #3 Impaired Strength PT Goal 1 Goal Patient will demonstrate gross R shoulder strength of 4+/5 Progress Partially Met PT Goal 2 Goal Patient will demonstrate 8# lift overhead x 10 when protocol allows for functional object manipulation return Target Visit 8 Progress Partially Met
--- NOTE | 2024-01-21 14:42 | PTOPPROG ---
Assessment and note entered by [facility], PT Evaluation Information Assessment Status Progress Diagnosis Right rotator cuff repair Onset 12/01/23 Subjective Information Reports that shoulder is feeling better. He had a small spot where a stitch was infected and it was cleaned on Wednesday. He is currently on oral antibiotic. Denies any pain at rest. No concerns at this time with progress. Assessment PT Clinical Summary Patient has made excellent progress with protocol. Showing minor strength deficits in over shoulder activity which will be eased in to with strengthening HEP which was issued today. 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 Plan of Care Interventions Electrical Stimulation,Manual Therapy,Neuro Re- education,Therapeutic Activities,Therapeutic Exercise PT Services Indicated Yes Treatment Frequency and 1x/week for 4 visits Duration These treatments will address the objective and functional deficits as defined above. The patient will be advanced safely and appropriately in order for the patient to progress towards his/her prior level of function. Additional exercises will be introduced and as well as a comprehensive home exercise program upon discharge, if needed, ?to ensure carryover of functional gains achieved in the clinic. This treatment plan has been reviewed and agreement upon by the patient.
--- NOTE | 2024-02-22 14:07 | PTOPDC ---
Assessment and note entered by [facility], PT Evaluation Information Assessment Status Discharge Diagnosis Right rotator cuff repair Onset 12/01/23 Subjective Information Report no restriction at this time. Feels he is doing most everything that he needs to nd is comfortable with HEP. Reported Pain Level Pain Score 0: Self Report Assessment PT Clinical Summary Patient met all goals for therapy and is suitable for discharge to [facility] at this time. Will continue performance of strengthening of shoulder as part of HEP moving forward. Plan of Care PT Services Indicated Yes
== END 2024-02-22 14:24 | disposition home or self-care (01) ==
LOC: ANHGOSHPT 13:30
PROVIDERS: PCP Family Medicine; Visit Provider Orthopaedic Surgery
DX: M75.100 Unspecified rotator cuff tear or rupture of unspecified shoulder, not specified as traumatic (principal)
CPT/HCPCS: 97016; 97110; 97112; 97140; 97161; 97530

== ENCOUNTER 2024-06-05 00:51 | Day surgery (SDC) | payer BC, SELFPAY ==
[2024-05-23 14:47] VITALS: BMI 37.0
[2024-06-05 13:34] VITALS: BP 144/89; PULSE 66; RESP 18; TEMP 36.4; O2SAT 100; BMI 35.9
[2024-06-05] MEDS: LACTATED RINGERS 1,000 ML 150 ML IV CONT (13:37)
[2024-06-05 13:49] LABS: Glucose Point of Care 107 mg/dl (65-105)
--- NOTE | 2024-06-05 14:10 | P.PNAN_ITS ---
Anes - Initial Pre Proc Eval Procedure: Operation Date: 06/05/24 14:30 Proposed Procedures p Screening Colonoscopy - Shan Vines MD Date/Time: 06/05/24 14:10 Surgeon: Shan Vines MD Pre Op Diagnosis: neoplasm screening Patient Data Age: 59 Gender: M Height: 1.75 m Weight: 110.4 kg Last Vital Signs Temp 36.4 C L 06/05/24 13:34 Pulse 66 06/05/24 13:34 Resp 18 06/05/24 13:34 BP 144/89 H 06/05/24 13:34 Pulse Ox 100 06/05/24 13:34 O2 Del Method Room Air 06/05/24 13:34 Allergies Allergy/AdvReac Type Severity Reaction Status Date / Time No Known Allergies Allergy Verified 06/05/24 13:33 Home Medications Medication Instructions Recorded Confirmed Type atorvastatin 10 mg tablet 10 mg PO DAILY #90 tabs 09/08/23 06/05/24 Rx amlodipine 5 mg tablet 5 mg PO DAILY 10/19/23 06/05/24 History semaglutide 0.25 mg or 0.5 mg (2 0.25 mg (0.368 mL) subcut WEEKLY 03/22/24 06/05/24 Rx mg/3 mL) subcutaneous pen injector #3 mL (Ozempic) olmesartan 40 mg tablet 40 mg PO DAILY #90 tabs 04/12/24 06/05/24 Rx Laboratory Tests 06/05/24 13:46 POC Capillary Glucose 107 H mg/dl (65-105) Patient hx anesthesia problems: none Family hx anesthesia problems: none Results Review: All pre-operative results and documents have been reviewed as part of the pre- operative evaluation. [facility] Past Medical History Medical History Abdominal cramping Abnormal echocardiogram Abnormal EKG Anxiety Bloating BMI 34.0-34.9,adult BMI 36.0-36.9,adult BMI 38.0-38.9,adult BMI 39.0-39.9,adult BMI 40.0-44.9, adult Colon cancer screening Diabetes mellitus Elevated liver enzymes Encounter to establish care Fatigue Fatty liver CT 06/2018 - fatty liver with mild enlargement; DARREL, copper, ceruloplasmin negative Gout History of kidney stones HTN (hypertension) Hyperlipemia Kidney stones Loose stools Lumbago Nocturia RONDA on CPAP Rash and nonspecific skin eruption Right shoulder pain Rotator cuff tear Screening for diabetes mellitus Skin tag Tinea cruris Surgical History Surgical History Hx of colonoscopy 2014 - internal hemorrhoids and diverticulosis Hx of elbow surgery Hx of lithotripsy Family History Family History Father Family history of malignant neoplasm Mother Family history of malignant neoplasm of breast in first degree relative Hypertension Other Family history of pancreatic cancer Social History Social History 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[employer]; 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 Smoking status: Never smoker Second hand tobacco smoke exposure: Yes Alcohol intake: current Drinks per week: 4 Alcohol use details: bourbon every night Substance use: never Substance use type: does not use Lack of Transportation: No Lack of Food: Never True Current Housing: I Have Housing Concerned About Future Housing: No Difficulty Paying Gas/Electric Bills: No Difficulty Paying for Meds: No Currently Unemployed: No Education: Associate Degree Difficulty w/ Childcare or Family Care: No Living arrangements: with family Occupation/Education: occupation Additional occupation/education comments: [employer] Spiritual care concerns: No Anes - Eval Final PreProcedure Day of Procedure 06/05/24 14:10 Patient weight: obese Heart: regular rate and rhythm Lungs: clear to auscultation Airway: Mallampati scale class II Neurological: alert and oriented Last oral intake: >/= 8 hours ASA classification: III Emergent: no Anesthetic plan: proceed Anesthesia type and monitoring: general GIVS and standard monitoring Results Review: All pre-operative results and documents have been reviewed as part of the pre- operative evaluation. Informed Consent: The patient's anesthetic plan and its attendant risks and benefits were discussed with the patient/family/POA. Questions were solicited and answers provided to the satisfaction of the patient/family/POA.
--- NOTE | 2024-06-05 14:14 | PM.HPGS ---
History of Present Illness History of Present Illness Consent: Risks, benefits, and alternatives have been discussed and questions answered. Patient agrees to proceed with procedure. Chief complaint: neoplasm screening Narrative: Roman Franco is a 59 year old male here for screening colonoscopy, last one 10 years ago Review of Systems Review of Systems: All systems reviewed & are unremarkable except as noted in HPI and below PMFSH Past Medical History Medical History Abdominal cramping Abnormal echocardiogram Abnormal EKG Anxiety Bloating BMI 34.0-34.9,adult BMI 36.0-36.9,adult BMI 38.0-38.9,adult BMI 39.0-39.9,adult BMI 40.0-44.9, adult Colon cancer screening Diabetes mellitus Elevated liver enzymes Encounter to establish care Fatigue Fatty liver CT 06/2018 - fatty liver with mild enlargement; DARREL, copper, ceruloplasmin negative Gout History of kidney stones HTN (hypertension) Hyperlipemia Kidney stones Loose stools Lumbago Nocturia RONDA on CPAP Rash and nonspecific skin eruption Right shoulder pain Rotator cuff tear Screening for diabetes mellitus Skin tag Tinea cruris Surgical History Surgical History Hx of colonoscopy 2013 - internal hemorrhoids and diverticulosis Hx of elbow surgery Hx of lithotripsy Family History Family History Father Family history of malignant neoplasm Mother Family history of malignant neoplasm of breast in first degree relative Hypertension Other Family history of pancreatic cancer Social History Social History 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[employer]; 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 Smoking status: Never smoker Second hand tobacco smoke exposure: Yes Alcohol intake: current Drinks per week: 4 Alcohol use details: bourbon every night Substance use: never Substance use type: does not use Lack of Transportation: No Lack of Food: Never True Current Housing: I Have Housing Concerned About Future Housing: No Difficulty Paying Gas/Electric Bills: No Difficulty Paying for Meds: No Currently Unemployed: No Education: Associate Degree Difficulty w/ Childcare or Family Care: No Living arrangements: with family Occupation/Education: occupation Additional occupation/education comments: [employer] care concerns: No Meds Home Medications and Allergies Home Medications Medication Instructions Recorded Confirmed Type atorvastatin 10 mg tablet 10 mg PO DAILY #90 tabs 09/08/23 06/05/24 Rx amlodipine 5 mg tablet 5 mg PO DAILY 10/19/23 06/05/24 History semaglutide 0.25 mg or 0.5 mg (2 0.25 mg (0.368 mL) subcut WEEKLY 03/22/24 06/05/24 Rx mg/3 mL) subcutaneous pen injector #3 mL (Ozempic) olmesartan 40 mg tablet 40 mg PO DAILY #90 tabs 04/12/24 06/05/24 Rx Allergies Allergy/AdvReac Type Severity Reaction Status Date / Time No Known Allergies Allergy Verified 06/05/24 13:33 Vital Signs Vital Signs - 24 hr 06/05/24 13:34 Temperature 97.5 F L Pulse Rate 66 Respiratory Rate 18 Blood Pressure 144/89 H Pulse Oximetry 100 Oxygen Delivery Room Air Exam Const: General: comfortable and no acute distress HENMT: Face/Nose/Sinus: Normal nares present Eyes: General: appearance normal, both eyes and all related structures Neck: Neck: no JVD Resp: Auscultation: clear to auscultation bilaterally Cardio: Rate: regular rate Rhythm: regular rhythm GI: Inspection: non-distended GI Palp: Yes Soft to palpation Skin: General skin exam: normal color Neuro: General: gait normal Speech: normal speech Extrem: General: normal to inspection Psych: Mental Status: mental status grossly normal Assessment and Plan Assessment and plan (1) Colon cancer screening: Code(s): Z12.11 - Encounter for screening for malignant neoplasm of colon Status: Acute Assessment and Plan: colonoscopy
[2024-06-05 14:34] VITALS: BP 113/76; PULSE 72; RESP 20; O2SAT 96
[2024-06-05 14:44] VITALS: BP 116/66; PULSE 66; RESP 23; O2SAT 97
[2024-06-05 14:54] VITALS: BP 128/73; PULSE 61; RESP 17; O2SAT 98
== END 2024-06-05 15:04 | disposition home or self-care (01) ==
PROVIDERS: PCP Family Medicine; Referring Provider Nurse Practitioner; Visit Provider Internal Medicine Gastroenterology
PROC: 0DJD8ZZ Inspection of Lower Intestinal Tract, Via Natural or Artificial Opening Endoscopic (ICD-10-PCS; CPT 45378; principal; 2024-06-05 14:30)
DX: Z12.11 Encounter for screening for malignant neoplasm of colon (principal); D12.3 Benign neoplasm of transverse colon; D12.5 Benign neoplasm of sigmoid colon; K64.8 Other hemorrhoids; K57.30 Diverticulosis of large intestine without perforation or abscess without bleeding; I10 Essential (primary) hypertension; E78.5 Hyperlipidemia, unspecified; E11.9 Type 2 diabetes mellitus without complications; F41.9 Anxiety disorder, unspecified; G47.33 Obstructive sleep apnea (adult) (pediatric); E66.9 Obesity, unspecified; Z68.35 Body mass index [BMI] 35.0-35.9, adult; Z79.85 Long-term (current) use of injectable non-insulin antidiabetic drugs; Z99.89 Dependence on other enabling machines and devices; Z98.890 Other specified postprocedural states; Z87.442 Personal history of urinary calculi; Z80.3 Family history of malignant neoplasm of breast; Z80.0 Family history of malignant neoplasm of digestive organs
CPT/HCPCS: 45385; 82948; 88305; J2704; J7120

== ENCOUNTER 2024-12-08 12:36 | Outpatient (CLI) | payer BC, SELFPAY ==
--- OUTSIDE RECORDS SUMMARY | 2024-12-08 12:39 | XMS_ITS | Clinical Summary ---
Author Organization [facility] Address [address] [place] [phone] Phone Care Team Providers Care Technical Communication Teacher Name Role Phone Sanju Weems MD Primary Care Provider [phone] Allergies No known active allergies Medications atorvastatin (LIPITOR) 10 MG tablet atorvastatin 10 mg tablet Active clotrimazole-be tamethasone (LOTRISONE) cream APPLY TO RASH TWICE DAILY FOR 2 WEEKS 0 Active HYDROcodone-emily taminophen (NORCO) 5-325 MG per tablet hydrocodone 5 mg-acetaminophen 325 mg tablet Active naproxen (NAPROSYN) 500 MG tablet 1 Active nystatin (MYCOSTATIN) 422461 UNIT/GM powder APPLY TO AFFECTED AREA BY TOPICAL ROUTE TWICE A DAY 0 Active olmesartan (BENICAR) 40 MG tablet 1 Active metFORMIN XR 500 MG 24 hr tablet Take 1,000 mg by mouth 1 (one) time each day 2 Active amLODIPine (NORVASC) 5 MG tablet 2 Active Active Problems Problem Noted Date Diagnosed Date Hypercalcemia 10/15/2021 Essential hypertension 10/10/2020 Sleep apnea 10/10/2020 Calculus of kidney 10/10/2020 Dyslipidemia 02/13/2018 Immunizations Immunization Administration Dates Next Due Influenza TIV (IM) 07/22/2022(Deferred: Patient Refused) Family History Medical History Relation Comments Kidney stone Neg Hx Social History Tobacco Use Types Packs/Day Years Used Date Smoking Tobacco: Never Smokeless Tobacco: Never Alcohol Use Standard Drinks/Week Comments Yes 9 (1 standard drink = 0.6 oz pur e alcohol) Sex and Gender Information Value Date Recorded Sex Assigned at Not on file Legal Sex Male 1:46 PM MST Gender Identity Not on file Sexual Orientation Not on file Last Filed Vital Signs Vital Sign Reading Time Taken Comments Blood Pressure 118/72 07/22/2022 3:37 PM 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 Pulse 60 07/22/2022 3:37 PM 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 Temperature 36.7 C (98 F) 07/22/2022 3:37 PM 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 Respiratory Rate - - Oxygen Saturation - - Inhaled Oxygen Concentration - - Weight 112 kg (248 lb) 07/22/2022 3:37 PM 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 Height 175.3 cm (5' 9 ) 07/22/2022 3:37 PM 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 Body Mass Index 36.62 07/22/2022 3:37 PM 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 Plan of Treatment Health Maintenance Due Date Last Done Comments Influenza Vaccine (Season Ended) 2025 Insurance Care Teams Technical Communication Teacher Relationship Specialty Start Date End Date Sanju Weems MD [address] [place] [phone] PCP - General Internal Medicine 04/21/21
--- NOTE | 2024-12-08 13:01 | ECHO_ITS ---
Patient Info Name: Roman Franco Age: 59 years : 1965 Gender: Male Ht: 69 in Wt: 240 lbs BSA: 2.34 m2 HR: 64 bpm BP: 147 / 96 mmHg Technical Quality: Good Exam Date: 12/08/2024 1:08 PM Exam Location: Echo Lab Patient Status: Outpatient Admit Date: 12/08/2024 Staff Ordering Physician: Sumit Marcos DO Mathematics Education Professor: Trena Whiting RDCS Attending Provider: Sumit Marcos DO Referring Physician: Hemant MOY; Exam Type: CA echo doppler color flow Study Info Indications I42.2 - Other hypertrophic cardiomyopathy Complete two-dimensional, color flow and Doppler transthoracic echocardiogram is performed. Summary 1. Complete two-dimensional, color flow and Doppler transthoracic echocardiogram is performed. 2. There is moderate asymmetric septal increased left ventricular wall thickness at 1.4 cm and posterior wall thickness is 1.1 cm. 3. Ventricular septum is sigmoid shaped and measured at 1.6 cm suggestive of hypertrophic cardiomyopathy. 4. Left ventricular chamber dimension is normal. 5. Left ventricular systolic function is normal, estimated at 60-65%. 6. The left ventricular diastolic function is normal. 7. E/e' 8 is minimally elevated. 8. Right ventricular chamber dimension is mildly enlarged. 9. Left atrial chamber dimension is mildly enlarged. 10. There is mild mitral valve regurgitation. 11. There is trace tricuspid valve regurgitation. 12. No pulmonary hypertension, estimated pulmonary arterial systolic pressure is 29 mmHg. Left Ventricle E/e' 8 is minimally elevated. Ventricular septum is sigmoid shaped and measured at 1.6 cm suggestive of hypertrophic cardiomyopathy. There is moderate asymmetric septal increased left ventricular wall thickness at 1.4 cm and posterior wall thickness is 1.1 cm. Left ventricular chamber dimension is normal. Left ventricular systolic function is normal, estimated at 60-65%. The left ventricular diastolic function is normal. Right Ventricle Right ventricular chamber dimension is mildly enlarged. Right ventricular systolic function is normal. Left Atria Left atrial chamber dimension is mildly enlarged. Right Atria Right atrial chamber dimension is normal. Aortic Valve The aortic valve is trileaflet. There is no aortic valve stenosis. There is no aortic valve regurgitation. Pulmonic Valve There is no pulmonic regurgitation. Mitral Valve There is no mitral valve stenosis. There is mild mitral valve regurgitation. Tricuspid Valve There is trace tricuspid valve regurgitation. No pulmonary hypertension, estimated pulmonary arterial systolic pressure is 29 mmHg. Pericardium/Pleural There is no pericardial effusion. Inferior Vena Cava Normal inferior vena cava with >50% collapse upon inspiration consistent with normal right atrial pressure, 5 mmHg. Aorta The aortic root size at the sinus of Valsalva is normal. Left Ventricular Outflow Tract Name Value Normal LVOT 2D LVOT Diameter 2.1 cm LVOT Doppler LVOT Peak Gradient 5 mmHg LVOT Mean Gradient 3 mmHg LVOT VTI 26 cm LVOT VTI/AV VTI Ratio 0.9 LVOT Stroke Volume 92 ml LVOT CO 18.2 l/min LVOT CI 7.7 l/min/m2 Pulmonic Valve Name Value Normal PV Doppler PV Peak Gradient 6 mmHg Mitral Valve Name Value Normal MV Doppler MV Decel [place] 349 cm/s2 MV PHT 66 ms MV Area (PHT) 3.3 cm2 4.0-5.0 MV Diastolic Function MV E Peak Velocity 79 cm/s MV A Peak Velocity 55 cm/s MV E/A 1.4 MV Decel Time 226 ms MV Annular TDI MV E/e' (Septal) 10.4 <=8.0 MV E/e' (Lateral) 6.8 <=8.0 MV E/e' (Average) 8.6 Tricuspid Valve Name Value Normal TV Regurgitation Doppler TR Peak Velocity 246 cm/s TR Peak Gradient 17 mmHg Estimated PAP/RSVP RA Pressure 5 mmHg <=5 PA Systolic Pressure 29 mmHg <36 RV Systolic Pressure 29 mmHg <36 Aorta Name Value Normal Ascending Aorta Ao Root Diameter (MM) 3.2 cm Ao Root Diam Index (MM) 1.4 cm/m2 Aortic Valve Name Value Normal AV Doppler AV Peak Velocity 143 cm/s AV Peak Gradient 8 mmHg AV Mean Gradient 4 mmHg AV VTI 29 cm AV Area (Cont Eq VTI) 3.1 cm2 >=3.0 AV Area (Cont Eq Murtaza) 2.9 cm2 AV Regurgitation 2D LVOT Area 3.5 cm2 Ventricles Name Value Normal LV Dimensions 2D/MM IVS Diastolic Thickness (2D) 1.4 cm 0.6-1.0 LVID Diastole (2D) 4.0 cm 4.2-5.8 LVIW Diastolic Thickness (2D) 1.1 cm 0.6-1.0 LVID Systole (2D) 2.9 cm 2.5-4.0 LVOT Diameter 2.1 cm LV Mass (2D Cubed) 173.95 g 88.00-224.00 LV Mass Index (2D Cubed) 74 g/m2 49-115 Relative Wall Thickness (2D) 0.55 LV Fractional Shortening/Ejection Fraction 2D/MM LV Fractional Shortening (2D) 27 % 25-43 LV EF (2D Teicholz) 54 % 52-72 LV Diastolic Volume (4C MOD) 107 ml LV EF (4C MOD) 57 % LV Diastolic Volume (2C MOD) 120 ml LV EF (2C MOD) 65 % LV Diastolic Volume (BP MOD) 118 ml 62-150 LV Diastolic Volume Index (BP MOD) 50 ml/m2 34-74 LV Systolic Volume (BP MOD) 45 ml 21-61 LV Systolic Volume Index (BP MOD) 19 ml/m2 11-31 LV EF (BP MOD) 62 % 52-72 LV Diastolic Length (4C) 8.6 cm LV Systolic Length (4C) 7.6 cm LV Stroke Volume (4C MOD) 61 ml RV Dimensions 2D/MM RVID Diastole (2D) 4.9 cm 2.5-3.5 Atria Name Value Normal LA Dimensions LA Dimension (MM) 4.3 cm 3.0-4.1 LA Volume (4C A-L) 62 ml LA Volume (BP A-L) 53 ml RA Dimensions RA Area (4C) 13.7 cm2 <=18.0 Report Signatures
== END 2024-12-08 12:37 | disposition home or self-care (01) ==
PROVIDERS: PCP Family Medicine; Visit Provider Internal Medicine Cardiovascular Disease
DX: R93.1 Abnormal findings on diagnostic imaging of heart and coronary circulation (principal); I42.2 Other hypertrophic cardiomyopathy
CPT/HCPCS: 93306